=== PATIENT | female | born 1960 | race Caucasian/White ===

== ENCOUNTER 2017-11-24 18:07 | Emergency (ER) | payer BC ==
[~2017-11-24] VITALS: Ht 170.2 cm; Wt 101.1 kg
[2017-11-24 20:23] LABS: HEMATOCRIT 41.3 % (36.0-46.0); HEMOGLOBIN 13.7 G/DL (11.9-15.5); MCH 29.1 PG (29.0-34.0); MCHC 33.2 G/DL (30.0-36.0); MCV 87.9 FL (83-99); PLATELET COUNT 176 K/uL (156-360); RBC DIS.WIDTH-CV 13.3 % (11.8-14.6); RBC DIS.WIDTH-SD 43.3 % (39-53); WHITE BLOOD COUNT 7.5 K/uL (4.1-10.2)
[2017-11-24 20:39] LABS: ALBUMIN 4.4 g/dL (3.2-4.8); CHLORIDE 108 mEq/L (99-109); POTASSIUM 4.1 mEq/L (3.7-5.4); SODIUM 145 mEq/L (136-147)
[2017-11-24 20:41] LABS: GLUCOSE 129 mg/dL (70-99); TOTAL PROTEIN 7.3 g/dL (6.4-8.3)
[2017-11-24 20:43] LABS: TOTAL BILIRUBIN 0.3 mg/dL (0.0-1.0)
[2017-11-24 20:45] LABS: ALKALINE PHOSPHATASE 105 IU/L (3-129); CREATININE 0.8 mg/dL (0.6-1.3); GFR ESTIMATE (CALCULATED) > 59 mL/min/
[2017-11-24 20:46] LABS: UREA NITROGEN (BUN) 16 mg/dL (9-23)
[2017-11-24 20:47] LABS: AST (GOT) 17 IU/L (2-34)
[2017-11-24 20:48] LABS: ALT (GPT) 22 IU/L (3-49)
[2017-11-24 20:51] LABS: TROP-I INTERPRETATION NEGATIVE; TROPONIN-I < 0.01 ng/mL (0.0-0.30)
[2017-11-24 23:38] LABS: TROP-I INTERPRETATION NEGATIVE; TROPONIN-I < 0.01 ng/mL (0.0-0.30)
[2017-11-24 23:55] VITALS: BP 141/92
== END 2017-11-25 00:11 | disposition home or self-care (01) ==
LOC: EME 18:07
PROVIDERS: Emergency Medicine
DX: R07.9 Chest pain, unspecified (principal); Z82.49 Family history of ischemic heart disease and other diseases of the circulatory system
CPT/HCPCS: 71045; 80053; 84484; 85027; 93005